=== PATIENT | male | born 1950 | race Two or more races ===

== ENCOUNTER 2018-04-21 17:12 | Inpatient (IN) | payer OTHER ==
[~2018-04-21] VITALS: Ht 175.3 cm; Wt 80.7 kg
[2018-04-21] MEDS ORDERED: METFORMIN HCL500 MG (17:18)
== END 2018-04-23 13:21 | disposition home or self-care (01) | DRG 358 ==
LOC: ER 17:12 → SURG 22:45 → SEC-K 22:45 → SURG 04-22 01:40
PROVIDERS: ADMIT Surgery
PROC: 0DQV0ZZ Repair Mesentery, Open Approach (ICD-10-PCS; principal; 2018-04-22)
DX: K45.0 Other specified abdominal hernia with obstruction, without gangrene (principal); K66.0 Peritoneal adhesions (postprocedural) (postinfection); E11.9 Type 2 diabetes mellitus without complications

== ENCOUNTER 2019-03-09 20:15 | Emergency (ER) | payer OTHER ==
[~2019-03-09] VITALS: Ht 175.3 cm; Wt 81.6 kg
[~2019-03-09 20:15] MED LIST: METFORMIN HCL500 MG
== END 2019-03-09 21:10 | disposition home or self-care (01) ==
LOC: ER 20:15
DX: S81.831A Puncture wound without foreign body, right lower leg, initial encounter (principal); W61.99XA Other contact with other birds, initial encounter; Y93.89 Activity, other specified; Y92.89 Other specified places as the place of occurrence of the external cause; Y99.8 Other external cause status

== ENCOUNTER 2022-12-08 16:03 | Emergency (ER) | payer OTHER ==
[~2022-12-08] VITALS: Ht 167.6 cm; Wt 84.8 kg
== END 2022-12-08 21:23 | disposition home or self-care (01) ==
LOC: ER 16:03
DX: S29.8XXA Other specified injuries of thorax, initial encounter (principal); V43.52XA Car driver injured in collision with other type car in traffic accident, initial encounter; Y93.89 Activity, other specified; Y92.413 State road as the place of occurrence of the external cause; S09.8XXA Other specified injuries of head, initial encounter; S79.811A Other specified injuries of right hip, initial encounter; S49.82XA Other specified injuries of left shoulder and upper arm, initial encounter; E11.9 Type 2 diabetes mellitus without complications; Z79.84 Long term (current) use of oral hypoglycemic drugs